=== PATIENT | female | born 1985 | race African-American/Black ===

== ENCOUNTER 2017-01-18 23:45 | Inpatient (IN) | payer OTHER ==
[~2017-01-18] VITALS: Ht 168.9 cm; Wt 99.0 kg
[~2017-01-18 23:45] MED LIST: PRENAT PO
[2017-01-19] MEDS ORDERED: LACTATED RINGER'S 1,000 ML IV SCH (00:03)
[2017-01-19 00:15] VITALS: BP 121/72; PULSE 79; RESP 20; Ht 168.9 cm; Wt 99.0 kg
[2017-01-19] MEDS ORDERED: OXYTOCIN 30 UNITS/LR 500 ML IV SCH ×2 (00:30)
[2017-01-19] MEDS ORDERED: METHYLERGONOVINE 0.2 MG INJ IM PRN ×2 (00:30→02:00)
[2017-01-19] MEDS ORDERED: MISOPROSTOL 200 MCG TAB PR PRN ×2 (00:30→02:00)
[2017-01-19] MEDS ORDERED: LIDOCAINE 1% (MPF) 30 ML INJ INJ PRN (00:30)
[2017-01-19] MEDS ORDERED: AMPICILLIN 2 GM/NS (PMX) 100 ML IV ONE (00:30)
[2017-01-19] MEDS ORDERED: CARBOPROST 250 MCG INJ IM PRN ×2 (00:30→02:00)
[2017-01-19] MEDS ORDERED: LACTATED RINGER'S 1,000 ML IV PRN (00:30)
[2017-01-19] MEDS ORDERED: IBUPROFEN 600 MG TAB PO PRN (00:30)
[2017-01-19] MEDS ORDERED: OXYTOCIN 30 UNITS/LR 500 ML IV PRN ×2 (00:30→02:00)
[2017-01-19] MEDS ORDERED: BUTORPHANOL 2 MG INJ IV PRN (00:30)
--- NOTE | 2017-01-19 01:06 | RADRPT ---
PROCEDURE: Ultrasound for biophysical profile CLINICAL INDICATION: . TECHNIQUE: Ultrasound examination for evaluation of biophysical profile. COMPARISON: None. FINDINGS: breathing is appropriate for score of 2.; and motion is appropriate for a score of 2; fe shereen tone appropriate for scar to; and ALEX is appropriate for score of 2. Biophysical profile of . The presentation is cephalic. Placenta is posterior grade II. heart motion is detected at a rate of 139 beats per minute. ALEX is 14.0 cm. IMPRESSION: Biophysical profile of 07/06. RPTAT: [facility]U Physician Elizabeth Date Time Electronically viewed and signed by Physician Elizabeth on 01/19/2017 01:06 RS/
[2017-01-19 01:09] LABS: BASOPHILS % 0.2 % (0.0-2.0); EOSINOPHILS % 0.2 % (0.0-7.0); HEMATOCRIT 35.3 % (37.0-47.0); HEMOGLOBIN 11.8 g/dl (12.0-16.0); LYMPHOCYTES # 2.6 10^3/ul (0.8-2.9); LYMPHOCYTES % 15.2 % (15.0-51.0); MEAN CORPUSCULAR HEMOGLOBIN 26.4 pg (29.0-33.0); MEAN CORPUSCULAR HGB CONC 33.4 g/dl (32.0-37.0); MEAN CORPUSCULAR VOLUME 79.2 fl (82.0-101.0); MEAN PLATELET VOLUME 9.3 fl (7.4-10.4); MONOCYTE # 1.1 10^3/ul (0.3-0.9); MONOCYTES % 6.6 % (0.0-11.0); NEUTROPHIL # 13.1 10^3/ul (1.6-7.5); NEUTROPHILS % 77.8 % (39.0-77.0); PLATELET COUNT 215 10^3/UL (140-440); RED BLOOD COUNT 4.46 10^6/ul (4.20-5.40); RED CELL DISTRIBUTION WIDTH 14.2 % (11.5-14.5); UNCORRECTED WBC 16.9 10^3/ul (4.8-10.8); WHITE BLOOD COUNT 16.9 10^3/ul (4.8-10.8)
--- NOTE | 2017-01-19 01:09 | RADRPT ---
PROCEDURE: US OB. CLINICAL INDICATION: . TECHNIQUE: Multiple sonographic images of the pelvis were obtained. The images were reviewed on a PACS workstation. COMPARISON: No prior studies are available for comparison. FINDINGS: There is a single viable intrauterine gestation. Cardiac activity is present with 143 beats per min [place]. There is a cephalic presentation. Measurements were made in order to determine age. The results are as follows: BPD =9.20 cm HC =33.18 cm AC =33.97 cm FL =7.64 cm. Estimated gestational age of approximately 38 weeks and 0 days. The estimated date of delivery is 02/02/2017. The EFW = 3393 g . The heart, intracranial contents, spine, stomach, kidneys, bladder and cord insertion are visualized and without abnormality. The placenta is posterior grade II. There is no evidence for an abruption or placenta previa. There is a normal amount of amniotic fluid with an ALEX = 14.0 cm. There are no adnexal masses.. IMPRESSION: Single live intrauterine gestation of approximately 38 weeks and 0 days. The estimated date of deli very is 02/02/2017 . RPTAT: UU Physician Elizabeth Date Time Electronically viewed and signed by Physician Elizabeth on 01/19/2017 01:09 RS/
[2017-01-19 01:17] LABS: CONDITION 1; LH ANALYZER COMMENTS 1
--- NOTE | 2017-01-19 01:40 | TRIAGE ---
OB Triage Datetime Report Generated by CPN: 01/19/2017 01:40 Datetime: 01/19/2017 00:55 Vaginal Exam Dilatation (cms): 10.0 Effacement (%): 100 Station: -1 Datetime: 01/19/2017 00:41 Assessment Type: Admission Assessment Vaginal Bleeding: None Maternal Assessment Level of Consciousness: Fully Conscious DTR's/Clonus: DTRs 2+; No Clonus Headache: Denies Blurred Vision: No Respiratory Effort: Unlabored; Regular Rhythm; Equal Expansion Breath Sounds, Left: Clear and Equal Breath Sounds, Right: Clear and Equal Nausea/Vomiting: Denies RUQ Epigastric Pain: Denies Lower Extremities Edema: Bilateral Lower Extremities Degree: 1+ Upper Extremities Edema: None Degree: None Facial Edema: None Fall Risk Assessment History of Falling: (0) No Secondary Diagnosis: (0) No Ambulatory Aid: (0) Bedrest/Nurse Assist IV Therapy: (20) Yes Gait: (0) Normal/Bedrest/Immobile Mental Status: (0) Oriented to Own Ability Fall Score: 20 Fall Risk Score Definition: No Risk: No action required Labor Evaluation Frequency: 4 MIN Duration (sec)2399: 50-70 Quality: Mild Pattern: Normal: <= 5 Contractions in 10 Minutes Heart Rate FHR Baseline Rate: 145 Variability: Moderate 6-25 bpm Category: Category II Pain Assessment Pain Scale: 8 Pain Presence: Intermittent Pain Type: Cramping; Contraction Pain Location: Abdomen; Back Pain Goal: 10 Membrane Status: Intact Datetime: 01/19/2017 00:22 Stage of : OB Triage Labor Evaluation Frequency: 2-4.5 Monitor Mode: External Duration (sec)2399: 40-80 Quality: Moderate Pattern: Normal: <= 5 Contractions in 10 Minutes Resting Tone [place]: Relaxed Heart Rate FHR Baseline Rate: 145 Monitor Mode: External US Variability: Moderate 6-25 bpm Accelerations: 15X15 Decelerations: Late; Variable Category: Category II Datetime: 01/19/2017 00:01 Stage of : OB Triage Datetime: 01/18/2017 23:56 Stage of : OB Triage Vaginal Exam Dilatation (cms): 6.0 Effacement (%): 80 Station: -2 Exam By: ARJUN Márquez Membrane Status: Bulging Vaginal Bleeding: Small Cervix, Consistency: Soft Cervix, Position: Midposition Datetime: 01/18/2017 23:53 Stage of : OB Triage Assessment Type: Triage Maternal Assessment Level of Consciousness: Fully Conscious DTR's/Clonus: DTRs 2+; No Clonus Headache: Denies Blurred Vision: No Respiratory Effort: Unlabored; Regular Rhythm; Equal Expansion Breath Sounds, Left: Clear and Equal Breath Sounds, Right: Clear and Equal Nausea/Vomiting: Denies RUQ Epigastric Pain: Denies Lower Extremities Edema: Bilateral Lower Extremities Degree: 1+ Upper Extremities Edema: None Degree: None Facial Edema: None Temperature Route: Oral Fall Risk Assessment History of Falling: (0) No Secondary Diagnosis: (0) No Ambulatory Aid: (0) Bedrest/Nurse Assist IV Therapy: (0) No Gait: (0) Normal/Bedrest/Immobile Mental Status: (0) Oriented to Own Ability Fall Score: 0 Fall Risk Score Definition: No Risk: No action required Pain Assessment Pain Scale: 8 Pain Presence: Intermittent Pain Type: Cramping; Contraction Pain Location: Abdomen; Back Pain Relief Measures: Comfort Measures Datetime: 01/18/2017 23:50 Stage of : OB Triage Time of Arrival: 01/18/2017 23:40 EGA: 38.6 Arrived By: Wheelchair Arrived From: Home Chief Complaint: UCs Movement: Decreased Contractions: Regular Time Contractions Began: 01/18/2017 22:30 Contractions: q5-10mins Rupture of Membranes: Denies Vaginal Bleeding: Small Vaginal Discharge: Present Abdominal Trauma: Not Applicable Patient Complaints: Contractions; Cramping; Back Pain Time Provider Notified: 01/19/2017 00:01 Provider Notified: Initial Plan: EFM x2, SVE Monitor Mode: External Contraction Comments: [place] applied Heart Rate FHR Baseline Rate: 150 Monitor Mode: External US Comments: EFM applied Datetime: 09/16/2016 07:28 Fall Score: 0 Fall Risk Score Definition: No Risk: No action required Datetime: 09/16/2016 07:26 EGA: 21.1
[2017-01-19 01:45] LABS: CBV Base Excess 0.1 mmol/L; CBV COHb 1.2 %; CBV Oxygen Sat 47.3 mmHG; CBV Total Hemglobin 16.4 g/dl; Cord Blood Venous pO2 19.6 mmHG (15.0-45.0); Fraction OxyHgb Cord Venous 46.1 %; MODE ROOM AIR; MetHgb Cord Venous 1.3 %; Sample Type CBV
[2017-01-19 01:46] LABS: AADO2 Cord Arterial 73.9 mmHg; Arterial Cord Blood pCO2 50.3 mmHG (25-50); CBA Base Excess -1.1 mmol/L; CBA Oxygen Sat 29.3 mmHG; CBA Total Hemglobin 16.3 g/dl; Cord Blood Arterial pO2 15.6 mmHG (15.0-45.0); Fraction OxyHgb Cord Arterial 28.6 %; MODE ROOM AIR; MetHgb Cord Arterial 1.3 %; Sample Type CBA
[2017-01-19] MEDS ORDERED: LACTATED RINGER'S 1,000 ML IV* SCH (01:48)
--- NOTE | 2017-01-19 01:48 | LDN ---
Date/Time of Note Date/Time of Note DATE: 01/19/17 TIME: 01:46 Delivery Summary Placenta Delivered: Spontaneously Meconium: none Perineum intact?: Yes Perineal laceration repair: 1st degree vaginal laceration repair with 2-0 chromic Anesthesia type: Local Estimated blood loss: 200 Sponge & Needle done & correct: Yes All needle counts correct: Yes Any foreign bodies felt in the: No Problems: Delivery Information Sex Sex: male Apgars 1 Minute: 9 5 Minute: 9 Suctioning Nose & mouth suctioned at mychal: No Delee suction performed: No Umbilical Cord Umbilical cord with: 3 Vessels Cord presentations: no nuchal cord Cord Blood was obtained: Yes SHARRI YOUNGBLOOD MD Jan 19, 2017 01:48
[2017-01-19] MEDS ORDERED: OXYCODONE/ASPIRIN (4.88/325) TAB PO PRN (02:00)
[2017-01-19] MEDS ORDERED: DIBUCAINE 1% 30 GM OINT PR PRN (02:00)
[2017-01-19] MEDS ORDERED: ONDANSETRON 4 MG INJ IV PRN (02:00)
[2017-01-19] MEDS ORDERED: WITCH HAZEL/GLYCERIN PAD PR PRN (02:00)
[2017-01-19] MEDS ORDERED: BENZOCAINE 20% 56 ML SPRAY TOP PRN (02:00)
[2017-01-19] MEDS ORDERED: LANOLIN 7 GM TUBE TOP PRN (02:00)
[2017-01-19] MEDS ORDERED: ACETAMINOPHEN 325 MG TAB PO PRN (02:00)
[2017-01-19] MEDS ORDERED: DIPHENHYDRAMINE 25 MG CAP PO PRN (02:00)
[2017-01-19] MEDS ORDERED: SENNA/DOCUSATE NA (8.6MG/50MG) TAB PO PRN (02:00)
[2017-01-19 02:50] LABS: INR 1.05; PROTIME 13.7 Sec (12.2-14.2); PT RATIO 1.1
[2017-01-19 02:51] LABS: PARTIAL THROMBOPLASTIN TIME 27.4 Sec (25.0-35.0)
[2017-01-19 03:25] VITALS: BP 109/59; PULSE 76; RESP 18
--- NOTE | 2017-01-19 03:47 | HP ---
DATE OF ADMISSION: 01/19/2017 HISTORY OF PRESENT ILLNESS: Ms. Christy Bergman is a 31-year-old 3, para 2 intrauterine pregnanc y at 38 weeks gestational age who presented to triage complaining of regular contractions. She was examined and was 6 cm dilated. Her care took place at [facility]. MEDICAL HISTORY: None. MEDICATIONS: vitamins. PAST SURGICAL HISTORY: None. OBSTETRIC HISTORY: x2 vaginal deliveries. GYNECOLOGIC HISTORY: 14, regular, 3 to 4 days. Denies any sexually transmitted diseases. Sexually active with 1 partner. SOCIAL HISTORY: Denies any smoking, drugs, or alcohol. FAMILY HISTORY: None. PHYSICAL EXAMINATION: HEENT: Within normal. LUNGS: CTA bilateral. CARDIOVASCULAR: S1, S2, regular rhythm. ABDOMEN: Gravid, nontender. Negative CVA bilateral. EXTREMITIES: Negative edema. No calf tenderness. PELVIC: Vaginal exam, fully dilated, 100% effaced, +1 station. heart tracing category 1. To cometer regular contractions. ASSESSMENT: A 31-year-old 3, para 2, intrauterine at term in labor. PLAN: Intrauterine resuscitation, expecting vaginal delivery. Dictated By: SHARRI WEN/NTS Conf#: [id number] DID#: [id number]
[2017-01-19] MEDS ORDERED: AMPICILLIN 1 GM/NS (PMX) 50 ML IV SCH (04:30)
[2017-01-19] MEDS: OXYCODONE/ASPIRIN (4.88/325) TAB PO PRN ×2 (05:35→19:02)
[2017-01-19] MEDS: IBUPROFEN 600 MG TAB PO SCH ×3 (06:00→17:22)
[2017-01-19 08:00] VITALS: BP 117/68; PULSE 76; RESP 20
[2017-01-19] MEDS: SENNA/DOCUSATE NA (8.6MG/50MG) TAB PO SCH (08:27)
[2017-01-19 19:50] VITALS: BP 120/70; PULSE 86; RESP 18
[2017-01-20] MEDS: IBUPROFEN 600 MG TAB PO SCH ×4 (00:06→18:07)
[2017-01-20] MEDS: SENNA/DOCUSATE NA (8.6MG/50MG) TAB PO SCH ×3 (00:06→21:00)
[2017-01-20] MEDS: OXYCODONE/ASPIRIN (4.88/325) TAB PO PRN (01:03)
[2017-01-20 04:00] VITALS: BP 122/47; PULSE 71
[2017-01-20 08:15] VITALS: BP 109/63; PULSE 77; RESP 20
[2017-01-20 08:55] LABS: BASOPHILS % 0.3 % (0.0-2.0); EOSINOPHILS # 0.1 10^3/ul (0.0-0.5); HEMATOCRIT 33.4 % (37.0-47.0); HEMOGLOBIN 11.2 g/dl (12.0-16.0); LYMPHOCYTES # 2.9 10^3/ul (0.8-2.9); LYMPHOCYTES % 19.2 % (15.0-51.0); MEAN CORPUSCULAR HEMOGLOBIN 26.8 pg (29.0-33.0); MEAN CORPUSCULAR HGB CONC 33.4 g/dl (32.0-37.0); MEAN CORPUSCULAR VOLUME 80.2 fl (82.0-101.0); MEAN PLATELET VOLUME 8.9 fl (7.4-10.4); MONOCYTE # 1.1 10^3/ul (0.3-0.9); MONOCYTES % 7.6 % (0.0-11.0); NEUTROPHIL # 10.8 10^3/ul (1.6-7.5); NEUTROPHILS % 71.9 % (39.0-77.0); PLATELET COUNT 199 10^3/UL (140-440); RED BLOOD COUNT 4.17 10^6/ul (4.20-5.40); RED CELL DISTRIBUTION WIDTH 14.4 % (11.5-14.5)
[2017-01-20 09:03] LABS: CONDITION 1; LH ANALYZER COMMENTS 1
--- NOTE | 2017-01-20 12:38 | QN ---
Documentation Comment attending note PPD 1 patient seen and evaluated no complaints vs stable abd soft nt, uterine fundus below umbillicus extremity no edema no calf tenderness a/ sp vaginal delivery PPD 1 stable afebrile doing well p d/c tommorrow f/u office X 3 weeks SHARRI YOUNGBLOOD MD Jan 20, 2017 12:38
--- NOTE | 2017-01-20 12:39 | PD.PPDC ---
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
--- NOTE | 2017-01-20 16:27 | DS ---
DATE OF ADMISSION: 01/19/2017 DATE OF DISCHARGE: 01/21/2017 PRIMARY DIAGNOSIS: A 31-year-old 3, para 2, intrauterine at 38 weeks gestational age in labor. PROCEDURE: Normal spontaneous vaginal delivery. CONDITION ON DISCHARGE: Stable. ACTIVITY: None per vagina, no heavy lifting x6 weeks. DIET: Regular. MEDICATIONS ON DISCHARGE: Motrin. DISCHARGE SUMMARY: Ms. Christy Bergman is a 31-year-old 3, para 3, status post normal spontaneou s vaginal delivery on 01/19/2017. She had a viable male, 9 and 9 respectively at 1 and 5 sharmaine marcus. She had an uneventful day 1. She will be discharged on day 2. She is a mbulating, tolerating diet, positive flatulence, positive bowel movement. She will follow up in the office in approximately 3 weeks for /postop care. Dictated By: SHARRI WEN/KENDELL Conf#: [id number] DID#: [id number]
[2017-01-20 16:35] VITALS: BP 110/59; PULSE 79; RESP 20
[2017-01-20 20:00] VITALS: BP 125/71; PULSE 89; RESP 20
[2017-01-21] MEDS: IBUPROFEN 600 MG TAB PO SCH ×2 (00:10→05:54)
[2017-01-21 04:00] VITALS: BP 106/66; PULSE 67; RESP 20
[2017-01-21 08:30] VITALS: BP 125/81; RESP 20
[2017-01-21] MEDS: SENNA/DOCUSATE NA (8.6MG/50MG) TAB PO SCH (09:00)
== END 2017-01-21 13:43 | disposition home or self-care (01) | DRG 775 ==
LOC: L-D 23:45 → OBT 23:45 → L-D 01-19 00:01 → OBT 01-19 00:01 → PP1 01-19 03:28
PROVIDERS: ADMIT Obstetrics & Gynecology; ATTEND Obstetrics & Gynecology
PROC: 10E0XZZ Delivery of Products of Conception, External Approach (ICD-10-PCS; principal; 2017-01-19)
PROC: 0UQGXZZ Repair Vagina, External Approach (ICD-10-PCS; 2017-01-19)
PROC: 4A1HX4Z Monitoring of Products of Conception, Cardiac Electrical Activity, External Approach (ICD-10-PCS; 2017-01-19)
DX: O71.4 Obstetric high vaginal laceration alone (principal); Z37.0 Single live birth; Z3A.38 38 weeks gestation of pregnancy
CPT/HCPCS: 36415; 36600; 76815; 76818; 82803; 85025; 85610; 85730; 86592; 86900; 86901; 87340; G0463; J0290; J2590; J7120

== ENCOUNTER 2018-07-21 20:21 | Emergency (ER) | END 2018-07-21 21:30 | disposition left against medical advice (07) ==